=== PATIENT | male | born 2000 | race Caucasian/White ===

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

== ENCOUNTER 2021-03-02 17:41 | Emergency (ER) | payer OTHER ==
[~2021-03-02] VITALS: Ht 200.7 cm; Wt 86.3 kg
[2021-03-02 17:45] VITALS: BP 140/86
[2021-03-02 18:29] LABS: BASO % 0 % (0-3); EOS # 0.1 x10^3/uL (0.0-0.7); EOS % 1 % (0-3); HEMATOCRIT 46.5 % (39.0-53.0); LYMPH # 1.1 x10^3/uL (1.0-4.8); LYMPH % 12 % (24-48); MEAN CORPUSCULAR HEMOGLOBIN 32 pg (25-35); MEAN CORPUSCULAR HGB CONC 35 g/dL (31-37); MEAN CORPUSCULAR VOLUME 93 fL (79-100); MONO # 0.7 x10^3/uL (0.0-1.1); MONO % 7 % (0-9); NEUT # 7.7 x10^3uL (1.8-7.7); NEUT % 80 % (31-73); PLATELET COUNT 225 x10^3/uL (140-400); RED BLOOD COUNT 4.99 x10^6/uL (4.30-5.70); RED CELL DISTRIBUTION WIDTH 12.9 % (11.5-14.5); WHITE BLOOD COUNT 9.5 x10^3/uL (4.0-11.0)
[2021-03-02 18:35] LABS: CALCIUM 9.8 mg/dL (8.5-10.1); CREATININE 1.3 mg/dL (0.7-1.3); GFR 71.1; POTASSIUM 3.2 mmol/L (3.5-5.1)
[2021-03-02 18:40] LABS: ALBUMIN 4.5 g/dL (3.4-5.0); ALBUMIN/GLOBULIN RATIO 1.3 (1.0-1.7); TOTAL BILIRUBIN 0.7 mg/dL (0.2-1.0); TOTAL PROTEIN 7.9 g/dL (6.4-8.2)
--- NOTE | 2021-03-02 19:11 | RAD ---
Exam: CT head, maxillofacial and cervical spine INDICATION: Seizure with fall TECHNIQUE: Sequential axial images through the head, face and cervical spine were obtained without th e administration of IV contrast. Comparisons: None FINDINGS: Head: No focal parenchymal lesion or hemorrhage is identified. There is no midline shift or sulcal effaceme nt. No acute vascular territory infarction is identified. Burris-white distinction is preserved. The ventricular system is within normal limits without compression hydrocephalus. The basal cisterns are well maintained. Face: Extra cranial soft tissue scalp contusion overlying the left frontal region. The visualized portions of the paranasal sinuses and mastoid air cells are well-pneumatized. No acute fractures. Cervical spine: Vertebral body heights are well-maintained. Straightening of cervical spine which may positional. Fracture to the cervical spine is not identified. Visualized paraspinal soft tissues are unremarkable. No significant spondylotic change in the cervical spine. IMPRESSION: 1. No acute intracranial abnormality. 2. Mild extra cranial soft tissue scalp contusion overlying the left frontal region without underlyi ng osseous or intracranial abnormality. 3. Negative CT C-spine for acute traumatic injury. Exposure: One or more of the following in the visualized dose reduction techniques were utilized for this examination: 1. Automated exposure control 2. Adjustment of the MA and/or KV according to patient size Use of iterative of reconstructive technique Electronically signed by: Jasmina Nieto MD (03/02/2021 7:09 PM) [facility]
[2021-03-02] MEDS ORDERED: BACITRACIN ZINC TOPICAL OINT PACKET. TP ONE ×2 (19:18→19:30)
--- NOTE | 2021-03-02 19:28 | RAD ---
Exam: Chest 2 views INDICATION: Seizure with fall TECHNIQUE: Frontal and lateral views the chest Comparisons: 09/15/2018 FINDINGS: The cardiomediastinal silhouette and pulmonary vessels are within normal limits. The lung and pleural spaces are clear. IMPRESSION: No acute cardiopulmonary process. Electronically signed by: Jasmina Nieto MD (03/02/2021 7:26 PM) [facility]
--- NOTE | 2021-03-02 19:29 | RAD ---
Exam: Right shoulder 3 views INDICATION: Seizure with fall TECHNIQUE: Frontal view of the right shoulder with internal and external rotation and transscapular Y views. Comparisons: None FINDINGS: Anterior dislocation of the right shoulder joint is noted. Bone mineralization is normal. No acute fr actures are seen. Soft tissues are unremarkable. IMPRESSION: Anterior dislocation at the right glenohumeral joint Electronically signed by: Jasmina Nieto MD (03/02/2021 7:27 PM) [facility]
--- NOTE | 2021-03-02 19:58 | PHYS DOC ---
Past History Past Medical History: Seizure (SHREE SILVA APRN) Past Surgical History: Appendectomy (SHREE SILVA APRN) Smoking: Non-smoker Alcohol Use: None Drug Use: None (SHREE SILVA APRN) Adult General Chief Complaint Chief Complaint: MECHANICAL FALL HPI HPI Patient is a 20-year-old male who presents to the emergency department via EMS reporting he had a seizure while hiking on a trail in [facility] with his mother. The patient's mother at bedside reports the patient had a seizure that lasted approximately 1 minute. The patient is not postictal at this time, the patient states he takes Keppra twice a day for his seizures however states he is not very compliant with his medications and often forgets to take doses. The patient's mother states he had a short postictal period and is now acting normally. The patient's mother states the patient landed face first when he fel l to the ground and had his seizure, grand mal type. The patient complains of facial pain, right shoulder pain, "I think it is dislocated ", denies any other aches or pains. The patient reports his last tetanus shot was approximately 4 years ago. The patient reports a 10/10 pain on a 1-10 pain scale. Patient denies any visual changes, halos, homicidal or suicidal ideation. The patient's mother states the patient took a large dose of Xanax 2 nights ago, is concerned that he is withdrawing from Xanax medication. The patient's mother also states the patient abuses Adderall. The patient's mother also states concerns the patient was possibly suicidal last weekend. Both the patient and the patient's mother state they would like to talk with somebody about drug withdrawal treatment and psychiatric treatment. (SHREE SILVA APRN) Review of Systems Review of Systems 14 body systems of review of systems have been reviewed. See HPI for pertinent positives and negative responses, otherwise all other systems are negative, nonpertinent or noncontributory. (SHREE SILVA APRN) Current Medications Current Medications Current Medications Medications (Trade) Dose Ordered Sig/Casandra Start Time Stop Time Status Last Admin Dose Admin Bacitracin (Bacitracin Topical Pkt) 1 pkt 1X ONCE 03/02/21 19:30 03/02/21 19:31 UNV 03/02/21 19:25 1 PKT Fentanyl Citrate (Fentanyl 2ml Vial) 100 mcg 1X ONCE 03/02/21 18:30 03/02/21 18:31 UNV 03/02/21 18:22 100 MCG (SHREE SILVA APRN) Allergies Allergies Allergies Coded Allergies Type Severity Reaction Last Updated Verified No Known Drug Allergies 09/15/18 No (SHREE SILVA APRN) Physical Exam Physical Exam Constitutional: Well developed, well nourished, no acute distress, non-toxic appearance. 20-year-old male in mild emotional distress. HENT: Normocephalic, atraumatic, bilateral external ears normal, oropharynx moist, no oral exudates, nose normal. No lymphadenopathy of the head or neck appreciated, no deformities of the scalp, no hematomas of the scalp appreciated, minor abrasions to the nose and left zygoma and upper orbit area, no bleeding appreciated. Oral mucosa intact, tongue is intact, no signs of bitten tongue or bitten oral mucosa. Scant postnasal bleeding. No epistaxis at this time, evidence of epistaxis appreciated. No trismus, no drooling appreciated. Pat ient speaking in normal voice sounds. Eyes: PERRLA, EOMI, conjunctiva normal, no discharge. Neck: Normal range of motion, no tenderness, supple, no stridor. No C-spine tenderness, no meningismus signs, no nuchal rigidity. Cardiovascular:Heart rate regular rhythm, no murmur, heart sounds S1-S2 to auscultation. Lungs & Thorax: Bilateral breath sounds clear to auscultation, all lung polanco, no adventitious lung sounds appreciated. Abdomen: Bowel sounds normal, soft, no tenderness, no masses, no pulsatile masses. Skin: Warm, dry, no erythema, no rash. Abrasions to the left side of face. No lacerations appreciated. Back: No tenderness, no CVA tenderness. Extremities: No tenderness, no cyanosis, no clubbing, ROM intact, no edema. Except for right shoulder, deformity noted, 2+ radial pulse, distal cap refill less than 2 seconds, no loss of sensation of the right upper extremity. No range of motion of the right shoulder attempted related to obvious deformity versus dislocation. Neurologic: Alert and oriented X 3, normal motor function, normal sensory function, no focal deficits noted. Psychologic: Affect normal, judgement normal, mood normal. (SHERE SILVA APRN) Current Patient Data Vital Signs Vital Signs Date Time Temp Pulse Resp B/P (MAP) Pulse Ox O2 Delivery O2 Flow Rate FiO2 03/02/21 17:45 71 26 140/86 (104) 99 Lab Results Laboratory Tests Test 03/02/21 18:00 White Blood Count 9.5 x10^3/uL (4.0-11.0) Red Blood Count 4.99 x10^6/uL (4.30-5.70) Hemoglobin 16.0 g/dL (13.0-17.5) Hematocrit 46.5 % (39.0-53.0) Mean Corpuscular Volume 93 fL (79-100) Mean Corpuscular Hemoglobin 32 pg (25-35) Mean Corpuscular Hemoglobin Concent 35 g/dL (31-37) Red Cell Distribution Width 12.9 % (11.5-14.5) Platelet Count 225 x10^3/uL (140-400) Neutrophils (%) (Auto) 80 % (31-73) H Lymphocytes (%) (Auto) 12 % (24-48) L Monocytes (%) (Auto) 7 % (0-9) Eosinophils (%) (Auto) 1 % (0-3) Basophils (%) (Auto) 0 % (0-3) Neutrophils # (Auto) 7.7 x10^3uL (1.8-7.7) Lymphocytes # (Auto) 1.1 x10^3/uL (1.0-4.8) Monocytes # (Auto) 0.7 x10^3/uL (0.0-1.1) Eosinophils # (Auto) 0.1 x10^3/uL (0.0-0.7) Basophils # (Auto) 0.0 x10^3/uL (0.0-0.2) Sodium Level 141 mmol/L (136-145) Potassium Level 3.2 mmol/L (3.5-5.1) L Chloride Level 101 mmol/L (98-107) Carbon Dioxide Level 27 mmol/L (21-32) Anion Gap 13 (6-14) Blood Urea Nitrogen 12 mg/dL (8-26) Creatinine 1.3 mg/dL (0.7-1.3) Estimated GFR (Cockcroft-Gault) 71.1 BUN/Creatinine Ratio 9 (6-20) Glucose Level 160 mg/dL (70-99) H Calcium Level 9.8 mg/dL (8.5-10.1) Magnesium Level 2.5 mg/dL (1.8-2.4) H Total Bilirubin 0.7 mg/dL (0.2-1.0) Aspartate Amino Transferase (AST) 21 U/L (15-37) Alanine Aminotransferase (ALT) 28 U/L (16-63) Alkaline Phosphatase 67 U/L (46-116) Total Protein 7.9 g/dL (6.4-8.2) Albumin 4.5 g/dL (3.4-5.0) Albumin/Globulin Ratio 1.3 (1.0-1.7) (SHREE SILVA APRN) EKG EKG [] (SHREE SILVA APRN) Radiology/Procedures Radiology/Procedures PATIENT: MAREK STOVER ACCOUNT: [id number] : 2000 LOCATION: ER AGE: 20 SEX: M EXAM STATUS: REG ER ORD. PHYSICIAN: SHREE SILVA APRN REASON: SEIZURE WITH FALL PROCEDURE: CHEST PA & LATERAL Exam: Chest 2 views INDICATION: Seizure with fall TECHNIQUE: Frontal and lateral views the chest Comparisons: 09/15/2018 FINDINGS: The cardiomediastinal silhouette and pulmonary vessels are within normal limits. The lung and pleural spaces are clear. IMPRESSION: No acute cardiopulmonary process. Electronically signed by: Jasmina Stoll MD (03/02/2021 7:26 PM) [facility] DICTATED AND SIGNED BY: JASMINA STOLL MD DATE: 03/02/211924 CC: SHREE SILVA APRN; AUSTIN FORMAN PA ~MTH0 0 PATIENT: MAREK STOVER ACCOUNT: [id number] : 2000 LOCATION: ER AGE: 20 SEX: M EXAM STATUS: REG ER ORD. PHYSICIAN: HSREE SILVA APRN REASON: SEIZURE WITH FALL PROCEDURE: CT HEAD AND CERVICAL SPINE WO Exam: CT head, maxillofacial and cervical spine INDICATION: Seizure with fall TECHNIQUE: Sequential axial images through the head, face and cervical spine were obtained without the administration of IV contrast. Comparisons: None FINDINGS: Head: No focal parenchymal lesion or hemorrhage is identified. There is no midline shift or sulcal effacement. No acute vascular territory infarction is identified. Burris-white distinction is preserved. The ventricular system is within normal limits without compression hydrocephalus. The basal cisterns are well maintained. Face: Extra cranial soft tissue scalp contusion overlying the left frontal region. The visualized portions of the paranasal sinuses and mastoid air cells are well- pneumatized. No acute fractures. Cervical spine: Vertebral body heights are well-maintained. Straightening of cervical spine which may positional. Fracture to the cervical spine is not identified. Visualized paraspinal soft tissues are unremarkable. No significant spondylotic change in the cervical spine. IMPRESSION: 1. No acute intracranial abnormality. 2. Mild extra cranial soft tissue scalp contusion overlying the left frontal region without underlying osseous or intracranial abnormality. 3. Negative CT C-spine for acute traumatic injury. Exposure: One or more of the following in the visualized dose reduction techniques were utilized for this examination: 1. Automated exposure control 2. Adjustment of the MA and/or KV according to patient size Use of iterative of reconstructive technique Electronically signed by: Jasmina Stoll MD (03/02/2021 7:09 PM) [facility] PATIENT: MAREK STOVER ACCOUNT: [id number] : 2000 LOCATION: ER AGE: 20 SEX: M EXAM STATUS: REG ER ORD. PHYSICIAN: SHREE SILVA APRN REASON: SEIZURE WITH FALL PROCEDURE: SHOULDER 2+V RIGHT Exam: Right shoulder 3 views INDICATION: Seizure with fall TECHNIQUE: Frontal view of the right shoulder with internal and external rotation and transscapular Y views. Comparisons: None FINDINGS: Anterior dislocation of the right shoulder joint is noted. Bone mineralization is normal. No acute fractures are seen. Soft tissues are unremarkable. IMPRESSION: Anterior dislocation at the right glenohumeral joint Electronically signed by: Jamsina Stoll MD (03/02/2021 7:27 PM) [facility] DICTATED AND SIGNED BY: JASMINA STOLL MD DATE: 03/02/211925 CC: SHREE SILVA APRN; AUSTIN FORMAN ~MTH0 0 PATIENT: MAREK STOVER ACCOUNT: [id number] : 2000 LOCATION: ER AGE: 20 SEX: M EXAM STATUS: REG ER ORD. PHYSICIAN: SHREE SILVA APRN REASON: SEIZURE, FALL, FACIAL TRAUMA PROCEDURE: CT MAXILLOFACIAL WO CONTRAST Exam: CT head, maxillofacial and cervical spine INDICATION: Seizure with fall TECHNIQUE: Sequential axial images through the head, face and cervical spine were obtained without the administration of IV contrast. Comparisons: None FINDINGS: Head: No focal parenchymal lesion or hemorrhage is identified. There is no midline shift or sulcal effacement. No acute vascular territory infarction is identified. Burris-white distinction is preserved. The ventricular system is within normal limits without compression hydrocephalus. The basal cisterns are well maintained. Face: Extra cranial soft tissue scalp contusion overlying the left frontal region. The visualized portions of the paranasal sinuses and mastoid air cells are well- pneumatized. No acute fractures. Cervical spine: Vertebral body heights are well-maintained. Straightening of cervical spine which may positional. Fracture to the cervical spine is not identified. Visualized paraspinal soft tissues are unremarkable. No significant spondylotic change in the cervical spine. IMPRESSION: 1. No acute intracranial abnormality. 2. Mild extra cranial soft tissue scalp contusion overlying the left frontal region without underlying osseous or intracranial abnormality. 3. Negative CT C-spine for acute traumatic injury. Exposure: One or more of the following in the visualized dose reduction techniques were utilized for this examination: 1. Automated exposure control 2. Adjustment of the MA and/or KV according to patient size Use of iterative of reconstructive technique Electronically signed by: Jasmina Stoll MD (03/02/2021 7:09 PM) [facility] (SHREE SILVA APRN) Heart Score C/O Chest Pain: No Risk Factors: Risk Factors: DM, Current or recent (<one month) smoker, HTN, HLP, family history of CAD, obesity. Risk Scores: Risk Factors: DM, Current or recent (<one month) smoker, HTN, HLP, family history of CAD, obesity. (SHREE SILVA APRN) Course & Med Decision Making Course & Med Decision Making Pertinent Labs and Imaging studies reviewed. (See chart for details) 20-year-old male, vital signs reviewed, presents emergency department status post seizure while hiking today. Physical examination concerning for facial trauma, right shoulder dislocation, illicit drug use/dependence. Will CT facial bones, head, C-spine, x-ray chest, right shoulder, consult PAT produce service team member for evaluation of drug abuse and accusations of possible suicidal ideation. Patient is not suicidal nor homicidal at this time. The patient's tetanus status is up-to-date. The patient will be given 100 mg IV fentanyl for 10/[address] maxillofacial bones, head, C-spine negative for acute process however noted soft tissue swelling over left frontal area, this is consistent with abrasions over the same area and patient's complaint of falling forward when seizure exacerbated. Patient's chest x-ray read negative, patient's shoulder x-ray showed dislocation without acute fracture. Right shoulder dislocation reduced with traction applied to right arm, no medications needed, right shoulder easily reduced. A post reduction x-ray order ed. Patient is an shoulder immobilizer applied by myself. Patient remains neurovascular intact, distal cap refill less than 2 seconds, radial pulse +2. Post reduction x-ray read by ED attending Dr. Lalo chen read shows right shoulder normal, no dislocation appreciated, no acute fracture appreciated. Discussed patient with PAT produce service team member Kavita who states she interviewed the pa tient and has set them up with outpatient drug rehabilitation at [facility]. Discussed findings with patient and patient's mother. Discussed shoulder immobilizer use, patient states he has dislocated his left shoulder in the past and is familiar with shoulder immobilizers. Discussed with patient need to follow-up with orthopedic surgeon next week, will give referral so he may make a call on this coming Thursday for appointment. Follow-up with primary care provider LUKE Moon for adjustment of outpatient medications to include Xanax, Adderall, Keppra. Discussed with patient strict precautions to take Keppra as directed to help prevent further seizure activity. Discussed return to ER precautions or concerns. Patient gave verbal understanding of discharge home instructions, wound care instructions for abrasions to face, follow-up with LUKE Moon, follow-up with the [facility] outpatient rehab center, return ER precautions or concerns, patient had no further questions or concerns and was discharged home without incident, reevaluation of shoulder immobilizer shows right upper extremity neurovascular intact, distal cap refill less than 2 seconds, radial pulse +2. 1 tablet of 10 mg oral Valium given as recommended by ED attending physician Dr. Bowman related to seizure possibly elicited by Xanax withdrawal. (SHREE SILVA APRN) Course & Med Decision Making Did not see or evaluate patient. Agree with STAYING MACHINE OPERATOR's work-up and disposition per note. (IRASEMA BOWMAN MD) Dragon Disclaimer Dragon Disclaimer This electronic medical record was generated, in whole or in part, using a voice recognition dictation system. (SRHEE SILVA APRN) Departure Departure: Impression: Primary Impression: Seizure Additional Impressions: Drug abuse Abrasion of face Dislocation of right shoulder joint Encounter for drug rehabilitation Disposition: 01 DC HOME SELF CARE/HOMELESS Condition: GOOD Referrals: AUSTIN FORMAN (PCP) MAYKEL BATISTA MD Patient Instructions: Abrasions, Shoulder Dislocation, Shoulder Fracture (Proximal Humerus or Glenoid)-[facility] Additional Instructions: Please follow-up with Dr. Batista for orthopedic specialty, call this Thursday for an appointment, follow-up with your primary care provider for adjustment of Keppra, Adderall, and Xanax. Please return to the emergency department for worsening symptoms or other concerns. Please follow the recommendations that the PAT produce service team member Kavita has given for follow-up at [facility]. Please keep your abrasions clean and dry, apply antibiotic ointment to them 3 times a day. EMERGENCY DEPARTMENT GENERAL DISCHARGE INSTRUCTIONS Thank you for coming to [facility] (ED) today and trusting us with you care. We trust that you had a positivie experience in our Emergency Department. If you wish to speak to the department management, you may call the director at [phone]. YOUR FOLLOW UP INSTRUCTIONS ARE FOLLOWS: 1. Do you have a private Doctor? If you do not have a private doctor, please ask for a resource list of physicians or clinics that may be able to assist you with follow up care. 2. The Emergency Physician has interpreted your x-rays. The X-Ray specialist will also review them. If there is a change in the findings, you will be notified in 48 hours when at all possible. 3. A lab test or culture has been done, your results will be reviewed and you will be notified if you need a change in treatment. ADDITIONAL INSTRUCTIONS AND INFORMATION: 1. Your care today has been supervised by a physician who is specially trained in emergency care. Many problems require more than one evaluation for a complete diagnosis and treatment. We recommend that you schedule your follow up appointment as recommended to ensure complete treatment of you illness or injury. If you are unable to obtain follow up care and continue to have a problem, or if your condition worsens, we recommend that you return to the ED. 2. We are not able to safely determine your condition over the phone nor are we able to give sound medical advice over the phone. For these safety reasons, if you call for medical advice we will ask you to come to the ED for further evaluation. 3. If you have any questions regarding these discharge instructions please call the ED at [phone]. SAFETY INFORMATION: In the interest of safety, wellness, and injury prevention; we encourage you to wear your sealbelt, if you smoke; quite smoking, and we encourage family to use a protective helmet for bicycling and other sporting events that present an increased risk for head injury. IF YOUR SYMPTOMS WORSEN OR NEW SYMPTOMS DEVELOP, OR YOU HAVE CONCERNS ABOUT YOUR CONDITION; OR IF YOUR CONDITION WORSENS WHILE YOU ARE WAITING FOR YOUR FOLLOW UP APPOINTMENT; EITHER CONTACT YOUR PRIMARY CARE DOCTOR, THE PHYSICIAN WHOSE NAME AND NUMBER YOU WERE GIVEN, OR RETURN TO THE ED IMMEDIATELY. Problem Qualifiers Additional Impressions: Abrasion of face Encounter type: initial encounter Qualified Codes: S00.81XA - Abrasion of other part of head, initial encounter Dislocation of right shoulder joint Encounter type: initial encounter Qualified Codes: S43.004A - Unspecified dislocation of right shoulder joint, initial encounter SHREE SILVA APRN Mar 02, 2021 19:57 IRASEMA BOWMAN MD Mar 02, 2021 23:10
--- NOTE | 2021-03-02 20:14 | RAD ---
EXAM: XR SHOULDER_RIGHT 2+ VIEWS 03/02/2021 7:52 PM CLINICAL INDICATION: Post reduction COMPARISON: Right shoulder radiograph same day TECHNIQUE: 3 views of the right shoulder FINDINGS: There has been successful reduction of the glenohumeral dislocation. There is a large Hill -Sachs fracture. Acromioclavicular joint is normal. IMPRESSION: Successful reduction of glenohumeral dislocation. Large Hill-Sachs fracture. Electronically signed by: Vilma Mackenzie MD (03/02/2021 8:12 PM) [id number]
[2021-03-02] MEDS ORDERED: diazePAM 5 MG TABLET. PO ONE (21:00)
== END 2021-03-02 20:48 | disposition home or self-care (01) ==
LOC: ER 17:41
DX: S43.084A Other dislocation of right shoulder joint, initial encounter (principal); S00.81XA Abrasion of other part of head, initial encounter; F19.10 Other psychoactive substance abuse, uncomplicated; R56.9 Unspecified convulsions; W18.39XA Other fall on same level, initial encounter; Y93.89 Activity, other specified; Y92.89 Other specified places as the place of occurrence of the external cause; Y99.8 Other external cause status
CPT/HCPCS: 23650; 36415; 70450; 70486; 71046; 72125; 73030; 80053; 83735; 85025; 96374; 99285; J3010; 29105

== ENCOUNTER → 2021-03-26 | Outpatient (CLI) | payer MEDICAID ==
[2021-03-02 17:45] VITALS: BP 140/86
--- NOTE | 2021-03-27 14:58 | RAD ---
EXAM: CT right shoulder without IV contrast DATE: 03/26/2021 4:03 PM COMPARISON: No prior INDICATION: Reason: ASSESS BONY DEF. OF GLENOID,SIZE/ORIENTATION OF HILL-SACH LESION / Spl. Instruct ions: HUMERAL HEAD FOR PREOPERATIVE PLANNING OF RIGHT SHOULDER INSTABIL / History: TECHNIQUE: CT of the right shoulder was performed without IV contrast. Axial, coronal and sagittal re formatted images were generated. PQRS compliance statement - One or more of the following individualized dose reduction techniques wer e utilized for this study: 1. Automated exposure control 2. Adjustment of the mA and/or kV according to patient size 3. Use of iterative reconstruction technique FINDINGS: There is an anterior inferior glenoid fracture with mild fragmentation consistent with bony Bankart i njury. Only a small portion of the glenoid is involved, the 2 principal fragments measure 7 x 2 mm an d 9 x 2 mm. There is deformity of the posterolateral humeral head consistent with Hill-Sachs deformity. This is m oderate in size. In addition there is deformity of the anteromedial humeral head consistent with reverse Hill-Sachs de formity likely from prior posterior dislocation, moderate to large in size. Visualized lungs are clear. Rotator cuff muscle bulk is grossly normal without fatty atrophy. IMPRESSION: 1. Hill-Sachs deformity and reverse Hill-Sachs deformity are seen of the humeral head. 2. Small bony Bankart fracture, anterior-inferior glenoid. Electronically signed by: Wilfredo Freire MD (03/27/2021 2:56 PM) [id number]
== END ==
LOC: CT 15:47
PROVIDERS: ATTEND Orthopaedic Surgery
DX: S42.91XA Fracture of right shoulder girdle, part unspecified, initial encounter for closed fracture (principal); M21.821 Other specified acquired deformities of right upper arm; X58.XXXA Exposure to other specified factors, initial encounter; Y93.89 Activity, other specified; Y92.89 Other specified places as the place of occurrence of the external cause; Y99.8 Other external cause status
CPT/HCPCS: 73200